=== PATIENT | male | born 1970 | race Caucasian/White ===

== ENCOUNTER → 2021-09-01 03:12 | Outpatient (CLI) | payer BC, SELFPAY ==
[2021-09-01 11:34] LABS: SARS-CoV-2 RNA PCR Negative
== END ==
PROVIDERS: PCP Internal Medicine; Visit Provider Internal Medicine Gastroenterology
DX: Z01.812 Encounter for preprocedural laboratory examination (principal); Z20.822 Contact with and (suspected) exposure to COVID-19
CPT/HCPCS: C9803; U0003; U0005

== ENCOUNTER 2021-09-04 00:24 | Day surgery (SDC) | payer BC, SELFPAY ==
[2021-08-23 13:22] VITALS: BMI 28.7
[2021-09-04 11:10] VITALS: BP 111/75; PULSE 103; RESP 16; TEMP 36.8; O2SAT 98
--- NOTE | 2021-09-04 11:15 | P.PNAN_ITS ---
Anes - Initial Pre Proc Eval Procedure: Operation Date: 09/04/21 12:30 Proposed Procedures p Screening Colonoscopy - Harrison Carr MD Date/Time: 09/04/21 11:15 Surgeon: Harrison Carr MD Pre Op Diagnosis: neoplasm screening Patient Data Age: 51 Gender: M Height: 1.83 m Weight: 103.3 kg Last Vital Signs Temp 36.8 C 09/04/21 11:10 Pulse 103 H 09/04/21 11:10 Resp 16 09/04/21 11:10 BP 111/75 09/04/21 11:10 Pulse Ox 98 09/04/21 11:10 Allergies Allergy/AdvReac Type Severity Reaction Status Date / Time No Known Allergies Allergy Mild Verified 09/04/21 11:09 Home Medications Medication Instructions Recorded Confirmed Type citalopram 20 mg PO DAILY 08/23/21 09/04/21 History levothyroxine 137 mcg PO DAILY 08/23/21 09/04/21 History rosuvastatin 20 mg PO DAILY 08/23/21 09/04/21 History tamsulosin 0.4 mg PO DAILY 08/23/21 09/04/21 History Patient hx anesthesia problems: none Family hx anesthesia problems: none Results Review: All pre-operative results and documents have been reviewed as part of the pre-operative evaluation. REPLACED BY [facility] Past Medical History Medical History (Updated 09/04/21 @ 11:27 by Harrison Carr MD) Anxiety Hyperlipidemia Hypothyroidism Family History Family History (Updated 03/25/14 @ 07:13 by DOCTOR UNKNOWN) Father Cerebrovascular accident Sibling Family history of malignant neoplasm of esophagus Family history of lupus erythematosus Social History Social History Smoking status: Never smoker Tobacco type: cigars Additional smoking assessment comments: rare, socially Alcohol intake: current Anes - Eval Final PreProcedure Day of Procedure 09/04/21 11:15 Patient weight: obese Heart: regular rate and rhythm Lungs: clear to auscultation and normal air movement Airway: Mallampati scale class II Neurological: alert and oriented Last oral intake: >/= 8 hours ASA classification: II Emergent: no Anesthetic plan: proceed Anesthesia type and monitoring: general GIVS and standard monitoring Results Review: All pre-operative results and documents have been reviewed as part of the pre-operative evaluation. Informed Consent: The patient's anesthetic plan and its attendant risks and benefits were discussed with the patient/family/POA. Questions were solicited and answers provided to the satisfaction of the patient/family/POA.
[2021-09-04] MEDS: LACTATED RINGERS 1,000 ML 150 ML IV CONT (11:19)
--- NOTE | 2021-09-04 11:26 | WPDGICN ---
Assessment and Plan Assessment and plan (1) Encounter for screening colonoscopy: Code(s): Z12.11 - Encounter for screening for malignant neoplasm of colon Status: Acute Assessment and Plan: Patient presents for screening colonoscopy. Appears to be at average risk for colon polyp. GI Consult Note Consult date/time: 09/04/21 11:26 HPI: Vazquez Wiggins is a 51 year old male Presents for screening colonoscopy. Patient reports that his current weight appetite and bowel movements are normal. He denies abdominal pain. He has had no bleeding. Family history is noncontributory. He desires neoplasia screening. Review of Systems Review of Systems: All systems reviewed & are unremarkable except as noted in HPI and below PMFSH Past Medical History Medical History (Updated 09/04/21 @ 11:27 by Harrison Carr MD) Anxiety Hyperlipidemia Hypothyroidism Family History Family History (Updated 03/25/14 @ 07:13 by DOCTOR UNKNOWN) Father Cerebrovascular accident Sibling Family history of malignant neoplasm of esophagus Family history of lupus erythematosus Social History Social History Smoking status: Never smoker Tobacco type: cigars Additional smoking assessment comments: rare, socially Alcohol intake: current Meds Home Medications and Allergies Home Medications Medication Instructions Recorded Confirmed Type citalopram 20 mg PO DAILY 08/23/21 09/04/21 History levothyroxine 137 mcg PO DAILY 08/23/21 09/04/21 History rosuvastatin 20 mg PO DAILY 08/23/21 09/04/21 History tamsulosin 0.4 mg PO DAILY 08/23/21 09/04/21 History Allergies Allergy/AdvReac Type Severity Reaction Status Date / Time No Known Allergies Allergy Mild Verified 09/04/21 11:09 Vital Signs Vital Signs - 24 hr 09/04/21 11:10 Temperature 98.3 F Pulse Rate 103 H Respiratory Rate 16 Blood Pressure 111/75 Pulse Oximetry 98 Exam Narrative: Physical exam reveals patient be alert. Vital signs stable. HEENT exam is unremarkable. Patient is anicteric. Lungs are clear to auscultation and to percussion. Heart is without murmur or extra sounds. Abdominal exam Reveals abdomen to be soft. Bowel sounds are present nontender with no organomegaly. Digital external rectal exam is normal.
[2021-09-04 11:50] VITALS: BP 97/61; PULSE 85; RESP 19; O2SAT 97
[2021-09-04 12:00] VITALS: BP 103/60; PULSE 79; RESP 18; O2SAT 97
[2021-09-04 12:10] VITALS: BP 109/73; PULSE 77; RESP 21; O2SAT 97
== END 2021-09-04 12:23 | disposition home or self-care (01) ==
PROVIDERS: PCP Internal Medicine Endocrinology, Diabetes & Metabolism; Visit Provider Internal Medicine Gastroenterology
PROC: 0DJD8ZZ Inspection of Lower Intestinal Tract, Via Natural or Artificial Opening Endoscopic (ICD-10-PCS; CPT 45378; principal; 2021-09-04 12:30)
DX: Z12.11 Encounter for screening for malignant neoplasm of colon (principal); K63.5 Polyp of colon; K64.8 Other hemorrhoids; E78.5 Hyperlipidemia, unspecified; E03.9 Hypothyroidism, unspecified; F41.9 Anxiety disorder, unspecified; E66.9 Obesity, unspecified; Z68.30 Body mass index [BMI] 30.0-30.9, adult
CPT/HCPCS: 45385; 88305; J2704; J7120

== ENCOUNTER 2023-05-14 17:24 | Emergency (ER) | payer BC, SELFPAY ==
--- NOTE | ~2023-05-14 | XR_ITS ---
EXAMINATION: XR chest 2V DATE: 05/14/2023 18:11 INDICATION: Chest pain. TECHNIQUE: Frontal and lateral views of the chest were obtained. COMPARISON: Chest 2 views 06/19/2012 FINDINGS: There is no pneumonia, pleural effusion, or pneumothorax. The heart size is normal. IMPRESSION: 1. No acute cardiopulmonary disease. Reviewed, dictated and finalized at location E.
[2023-05-14 17:25] VITALS: BP 132/90; PULSE 88; RESP 16; TEMP 36.6; O2SAT 99
--- NOTE | 2023-05-14 17:25 | ECG_ITS ---
Measurements Intervals [place] Rate: 78 P: 58 OK: 152 QRS: 19 QRSD: 97 T: 20 QT: 345 QTc: 395 Interpretive Statements SINUS RHYTHM NORMAL ECG NO PREVIOUS ECG AVAILABLE FOR COMPARISON Electronically Signed On 05-15-2023 8:54:42 CDT by Jose Segal M.D.
--- NOTE | 2023-05-14 17:34 | ED.GENADULT ---
HPI - General Adult General Chief complaint: Chest Pain <Candace Santana November, - Last Filed: 05/14/23 17:38> Stated complaint: CHEST TIGHTNESS,BELCHING <Candace Santana November, - Last Filed: 05/14/23 17:38> Time Seen by Provider: 05/14/23 18:39 <Candace Santana November, - Last Filed: 05/14/23 17:38> History of Present Illness HPI narrative: Vazquez Wiggins is a 53 y/o male with PMHx of HLD, NO hx of MD/HTN/DM/cardiac Stents - who present with reprots of having left sided chest pressure 3 days ago the following day started to have pain/aching to his left arm, and started to feel extreme fatigue. He states that he has continued fatigue and left sided chest tightness today rating at a 5/10 <Candace Santana November, - Last Filed: 05/14/23 17:38> Related Data Home medications: Home Medications Medication Instructions Recorded Confirmed citalopram 20 mg tablet 20 mg PO DAILY 08/23/21 09/04/21 levothyroxine 137 mcg tablet 137 mcg PO DAILY 08/23/21 09/04/21 rosuvastatin 20 mg tablet 20 mg PO DAILY 08/23/21 09/04/21 tamsulosin 0.4 mg capsule 0.4 mg PO DAILY 08/23/21 09/04/21 <Candace Santana November, - Last Filed: 05/14/23 17:38> Allergies/adverse reactions: Allergies Allergy/AdvReac Type Severity Reaction Status Date / Time No Known Allergies Allergy Mild Verified 09/04/21 11:09 <Candace Santana November, - Last Filed: 05/14/23 17:38> Review of Systems Review of Systems: All systems as dictated in HPI <Shant John PA-C - Last Filed: 05/15/23 02:05> [facility] Past Medical History Medical History: Medical History (Updated 05/15/23 @ 00:00 by Background Faizan) Anxiety Hyperlipidemia Hypothyroidism <Candace Santana November, - Last Filed: 05/14/23 17:38> Family History Family History: Family History (Updated 03/25/14 @ 07:13 by DOCTOR UNKNOWN) Father Cerebrovascular accident Sibling Family history of malignant neoplasm of esophagus Family history of lupus erythematosus <Candace ReyesAntonia November, - Last Filed: 05/14/23 17:38> Social History Social History: Social History Smoking status: Never smoker Tobacco type: cigars Additional smoking assessment comments: rare, socially Alcohol intake: current <Candace ReyesAntonia November, INTERMEDIATE CARD TENDER - Last Filed: 05/14/23 17:38> Exam Narrative: GENERAL: Well-appearing, well-nourished, and in no acute distress. HEAD: Normocephalic, atraumatic. EYES: PERRLA and EOMI. ENT: Nares clear, no rhinorrhea or epistaxis. Mucous membranes moist. Oropharynx without tonsillar hypertrophy exudate or other lesions. NECK: Supple. No adenopathy or masses. CHEST: No respiratory distress. Clear to auscultation. No wheezes rales or rhonchi HEART: Regular rate and rhythm. No murmur heard. Normal peripheral pulses. ABDOMEN: Soft, nontender, nondistended, normal active bowel sounds. MSK: Normal range of motion. No edema. SKIN: Warm, dry, no rash. NEURO: Alert and oriented x3. No focal deficits. PSYCH: Normal mood and affect. <Shant John PA-C - Last Filed: 05/15/23 02:05> Course MOTORCOACH OPERATOR/PA Physician Supervision MLP did discuss patient with me and I independently evaluated patient at bedside. Patient is found to be belching intermittently but does not appear to be in distress, not diaphoretic. Agree with findings and plan by PA. Discussed with patient that he may benefit from follow up with GI but should also consider follow up with market reporter in outpatient setting. He verified understanding. <Brenda Montalvo MD - Last Filed: 05/17/23 07:07> Vital Signs Vital signs: Vital Signs Temperature 97.9 F 05/14/23 17:25 Pulse Rate 88 05/14/23 17:25 Respiratory Rate 16 05/14/23 17:25 Blood Pressure 132/90 05/14/23 17:25 Pulse Oximetry 99 05/14/23 17:25 Temperature 98.0 F 05/14/23 18:26 Pulse Rate 88 05/14/23 21:30 Respiratory Rate 17 05/14/23 21:30 Blood Pressure 130/86 05/14/23 21:30 Pulse Oximetry 100 05/14/23 21:
[2023-05-14] MEDS: ASPIRIN 81 MG CHEWABLE TABLET 324 MG PO (17:58)
[2023-05-14 18:04] VITALS: O2SAT 98
[2023-05-14 18:05] LABS: Basophils Percent Auto 0.4 % (0.2-1.2); Eosinophils Absolute Auto 0.1 K/mm3 (0-0.3); Eosinophils Percent Auto 1.3 % (0-4.4); Hematocrit 44.7 % (42.0-52.0); Hemoglobin 15.7 g/dL (14.0-18.0); Immature Granulocyte Absolute 0.01 K/mm3 (0.00-0.031); Immature Granulocyte Percent A 0.1 % (0-0.5); Mean Corpuscular HGB Conc 35.1 g/dl (32-36); Mean Corpuscular Hemoglobin 30.8 pg (26-34); Mean Corpuscular Volume 87.8 fl (80-100); Mean Platelet Volume 8.5 fl (7.4-10.4); Monocytes Absolute Auto 0.6 K/mm3 (0.1-0.6); Monocytes Percent Auto 7.2 % (2.6-8.5); Neutrophils Absolute Auto 4.3 K/mm3 (1.3-6.7); Platelet Count Result 231 k/mm3 (150-375); Red Blood Count 5.09 M/mm3 (4.6-6.20); Red Cell Distribution Width 12.1 % (11.5-14.5); White Blood Count 8.2 K/mm3 (4.5-10.0)
[2023-05-14 18:16] LABS: Alanine Aminotransferase 30 U/L (6-50); Albumin Level 4.6 g/dL (3.5-5.1); Alkaline Phosphatase 55 U/L (38-126); Anion Gap 9 mmol/L (8-16); Aspartate Amino Transferase 25 U/L (17-59); Bilirubin,Total 0.6 mg/dL (0.2-1.3); Blood Urea Nitrogen 11 mg/dL (9-20); Calcium 9.1 mg/dL (8.4-10.2); Carbon Dioxide 28 mmol/L (22-30); Chloride 96 mmol/L (98-107); Estimated CRCL calculation 90 ml/min; Estimated Glomerular Filt Rate > 60; Glucose 113 mg/dL (65-110); Lipase 94 U/L (23-300); Potassium 4.5 mmol/L (3.4-5.0); Sodium 133 mmol/L (137-145)
[2023-05-14 18:19] LABS: Partial Thromboplastin Time 30.7 SECONDS (22.3-36.8); Prothrombin Time 13.9 Seconds (11.1-14.7)
[2023-05-14 18:25] LABS: D Dimer < 0.27 ug/mL (<0.48)
[2023-05-14 18:26] VITALS: BP 131/85; PULSE 69; RESP 18; TEMP 36.7; O2SAT 98
[2023-05-14 18:26] LABS: NT Pro B Type Natriuretic Pept < 20 pg/mL (19.9-100); Troponin I < 0.012 ng/mL (0.000-0.034)
[2023-05-14 20:00] VITALS: BP 123/87; PULSE 80; RESP 19; O2SAT 99
[2023-05-14] MEDS: BELLADONNA ALK/PHENOB ELIX 10 ML, MAG HYDROX/ALUMINUM HYD/SIMETH 30 ML, LIDOCAINE HCL 2... PO (20:56)
[2023-05-14 21:12] LABS: Troponin I < 0.012 ng/mL (0.000-0.034)
[2023-05-14 21:30] VITALS: BP 130/86; PULSE 88; RESP 17; O2SAT 100
== END 2023-05-14 21:30 | disposition home or self-care (01) ==
PROVIDERS: Emergency Medicine; Emergency Provider Physician Assistant; PCP Physician Assistant
DX: R07.89 Other chest pain (principal); E78.5 Hyperlipidemia, unspecified; E03.9 Hypothyroidism, unspecified; F41.9 Anxiety disorder, unspecified; F17.290 Nicotine dependence, other tobacco product, uncomplicated
CPT/HCPCS: 36415; 71046; 80053; 83690; 83880; 84484; 85025; 85380; 85610; 85730; 93005; 99284; A9270

== ENCOUNTER 2025-06-23 09:17 | Outpatient (CLI) | payer OTHER, SELFPAY ==
--- NOTE | ~2025-06-23 | US_ITS ---
Examination: US abdomen complete Clinical History: EPIGASTRIC PAIN . Comparison: CT 01/06/2010 Technique: Complete abdominal sonography Findings: Liver: Normal size. Echogenic. No intrahepatic biliary ductal dilatation. Normal hepatopedal flow main portal vein. Common duct: Normal caliber, 5 mm. Gallbladder: No stones. No wall thickening. No pericholecystic fluid. Spleen: Small calcified granulomata. Pancreas: Obscured by bowel gas. Kidneys: Unremarkable. Aorta: No aneurysmal dilatation. Retrohepatic IVC: Unremarkable. Hypoechoic focus upper midline abdomen. IMPRESSION: 1. No acute findings. 2. Hypoechoic focus upper midline abdomen. Recommend CT or MRI. Reviewed, dictated and finalized at location R. R QUALITY ASSISTANT
--- OUTSIDE RECORDS SUMMARY | 2025-06-23 09:48 | XMS_ITS | Clinical Summary ---
Author Organization [facility] Address [address] [place] [id number] Care Team Providers Care Machinist Instructor Name Role Phone Kaleigh Greene MD Primary Care Provider [phone] Social History Tobacco Use Types Packs/Day Years Used Date Smoking Tobacco: Never Assessed Sex and Gender Information Value Date Recorded Sex Assigned at Not on file Legal Sex Male 8:35 PM CDT Gender Identity Not on file Sexual Orientation Not on file Plan of Treatment Health Maintenance Due Date Last Done Comments Colorectal Cancer Screening Colonoscopy (10 Years) 1969 Annual Physical 02/04/1972 Hepatitis C 1987 DTaP, Tdap and Td Vaccines ( 1 - Tdap) 02/04/1988 Hepatitis B Vaccines (1 of 3 - 19+ 3-dose series) 02/04/1988 Pneumococcal Vaccine: 50+ Ye ars (1 of 1 - PCV) 2019 Zoster Vaccines (1 of 2) 2019 COVID-19 Vaccine ( - 2024-2 6 season) 2025 Influenza Adult (#1) 2025 Hepatitis A Vaccines Aged Out No long er eligible based on patient's age to complete this topic Meningococcal B Vaccine Aged Out No l onger eligible based on patient's age to complete this topic Meningococcal Vaccine Aged Out No josie jennifer eligible based on patient's age to complete this topic RSV Immunizations Under 20 Months Aged Out No longer eligible based on patient's age to complete [place] [address] [place] [address] [facility] MEDICAID C/O PROVIDER SERVICES [place] [id number] Care Teams Machinist Instructor Relationship Specialty Start Date End Date Kaleigh Greene MD [address] [place] [address] PCP - General ENDOCRINOLOGY 02/21/22
--- OUTSIDE RECORDS SUMMARY | 2025-06-23 09:48 | XMS_ITS | Clinical Summary ---
Author Organization [facility] Address [address] [place] [address] Care Team Providers Care Auto Mechanic Supervisor Name Role Phone Kaleigh Greene MD Primary Care Provider [phone] Source Comments [facility],non-owned Affiliates and Associated Physician Practices is amultiple site organization consisting of ambulatory clinics and hospital sitesin [place], [place], [place] and [place]. This disclosure is being madepursuant to the Care Everywhere program and may not contain all information available regarding this patient. Last updated 18.[employer] [facility] Allergies No known active allergies Medications * Be aware that medications may not be up to date on this document. Alwaysverify current medications with the patient. LEVOTHYROXINE SODIUM PO Active FENOFIBRATE PO Activ e Social History Tobacco Use Types Packs/Day Years Used Date Smoking Tobacco: Light Smoker Cigars Smokeless Tobacco: Never Sex and Gender Information Value Date Recorded Sex Assigned at Not on file Legal Sex Male 6:50 AM RELINER Gender Identity Not on file Sexual Orientation Not on file Last Filed Vital Signs Vital Sign Reading Time Taken Comments Blood Pressure 106/62 07/20/2017 11:48 AM RELINER Pulse 107 07/20/2017 11:48 AM RELINER Temperature 37.1 C (98.7 F) 07/20/2017 11:48 AM RELINER Respiratory Rate 16 07/20/2017 11:48 AM RELINER Oxygen Saturation 98% 07/20/2017 11:48 AM RELINER Inhaled Oxygen Concentration - - Weight 98.4 kg (217 lb) 07/20/2017 11:48 AM RELINER Height 185.4 cm (6' 1) 07/20/2017 11:48 AM RELINER Body Mass Index 28.63 07/20/2017 11:48 AM RELINER Plan of Treatment Health Maintenance Due Date Last Done Comments COLOGUARD (AGES 45-75) - COL ON CA SCREENING 1970 COLON MONITORING 1969 COLONOSCOPY - COLON CA SCREENING 1969 CT COLONOGRAPHY - COLON CA SCREENING 1969 Colorectal Cancer Screening 1970 FIT - COLON CA SCREENING 1969 FLEX SIG - COLON CA SCREENING 1969 LIPID TESTING 1969 HIV SCREENING 02/04/1984 HEPATITIS C SCREENING 01/30/1987 DTAP/TDAP/TD VACCINES (1 - Tdap) 02/04/1988 HEPATITIS B VACCINE (1 of 3 - 19+ 3-dose series) 02/04/1988 PNEUMOCOCCAL VACCINE 50+ (1 of 2 - PCV) 02/04/1988 SCREENING FOR DIABETES 07/20/2017 ZOSTER VACCINE (1 of 2) 2019 DEPRESSION SCREENING 07/29/2024 COVID-19 VACCINE (1 - 2024-2 6 season) 2025 INFLUENZA VACCINE (#1) 2025 HIB VACCINE Aged Out No longer eligi ble based on patient's age to complete this topic HPV VACCINE Aged Out No longer eligi ble based on patient's age to complete this topic MENINGOCOCCAL (Group B) VACC INE SHARED DECISION-MAKING Aged Out No longer eligibl e based on patient's age to complete this topic MENINGOCOCCAL GROUPS A/C/Y/W VACCINE Aged Out No longer eligible b ased on patient's age to complete this topic Insurance [facility] * Guarantor: JESSICA BERNARDO Account Type Relation to Patient Date of Phone Billing Address Personal/Family 1970 [facility] [place] [address] Care Teams Auto Mechanic Supervisor Relationship Specialty Start Date End Date Kaleigh Greene MD [address] [place] [address] PCP - General 09/05/21
== END 2025-06-23 09:18 | disposition home or self-care (01) ==
PROVIDERS: PCP Physician Assistant; Visit Provider Physician Assistant
DX: R10.13 Epigastric pain (principal)
CPT/HCPCS: 76700